=== PATIENT | male | born 1975 | race Caucasian/White ===

== ENCOUNTER → 2017-08-08 | Outpatient (CLI) | payer BC ==
--- NOTE | 2017-08-08 12:33 | RADIOLOGY REPORT (SQ) ---
EXAM DESCRIPTION: LUMBAR SPINE COMPLETE COMPLETED DATE/TIME: 08/08/2017 10:32 am REASON FOR STUDY: LOW BACK PAIN; OTHER SPONDYLOSIS M54.5 LOW BACK PAIN M47.896 OTHER SPONDYLOSIS, LUMBAR REGION COMPARISON: None. NUMBER OF VIEWS: Five views including obliques. TECHNIQUE: AP, lateral, oblique, and sacral radiographic images acquired of the lumbar spine. LIMITATIONS: None. FINDINGS: MINERALIZATION: Normal. SEGMENTATION: Normal. No transitional anatomy. ALIGNMENT: Normal. VERTEBRAE: Maintained height. No fracture or worrisome bone lesion. DISCS: High-grade disc space loss of height with vacuum disc phenomenon at L5-S1. Mild disc space lo ss of height at L4-5. POSTERIOR ELEMENTS: Pedicles and facets are intact. No pars defect or posterior arch defects. Mild bilateral facet arthropathy at L5-S1. HARDWARE: None in the spine. PARASPINAL SOFT TISSUES: Normal. PELVIS: Not in the field of view OTHER: No other significant finding. IMPRESSION: Degenerative disc changes at L5-S1, and L4-5 TECHNICAL DOCUMENTATION: JOB ID: [id number] [employer]- All Rights Reserved Reading location - IP/workstation name: [email or web address]
== END ==
LOC: OD 10:18
PROVIDERS: ATTEND Physician Assistant
DX: M54.5 Low back pain (principal); M47.896 Other spondylosis, lumbar region
CPT/HCPCS: 72110

== ENCOUNTER 2018-06-01 15:20 | Emergency (ER) | payer BC ==
[2018-06-01] MEDS ORDERED: RINGERS SOLUTION,LACTATED 1,000 ML IV ONE (17:05)
[2018-06-01] MEDS ORDERED: MORPHINE SULFATE 10 MG/ML INJ IV ONE (17:06)
[2018-06-01] MEDS ORDERED: ONDANSETRON HCL INJ/PF 4 MG/2 ML SDV IV ONE (17:06)
--- NOTE | 2018-06-01 17:09 | ER Document Report ---
ED Medical Screen (RME) - General Chief Complaint: Abdominal Pain Stated Complaint: ABDOMINAL PAIN Time Seen by Provider: 06/01/18 17:01 Primary Care Provider: XOCHITL BROWN MD [Primary Care Provider] - Follow up as needed Mode of Arrival: Ambulatory Information source: Patient Notes: This is a 43-year-old man with a history of hypertension and diabetes presents to the emergency room with nausea, vomiting, upper abdominal pain, chills, dizziness and weakness. Patient states that the discomfort started earlier today. TRAVEL OUTSIDE OF THE [place] IN LAST 30 DAYS: No - Related Data Allergies/Adverse Reactions: No Known Allergies Allergy (Verified 06/01/18 15:22) Past Medical History - Past Medical History Cardiac Medical History: Reports: Hx Hypertension Pulmonary Medical History: Denies: Hx Tuberculosis Endocrine Medical History: Reports: Hx Diabetes Mellitus Type 2 Past Surgical History: Reports: Hx Cardiac Catheterization, Hx Orthopedic Surgery - plate in neck.. Denies: Hx Pacemaker - Immunizations Hx Diphtheria, Pertussis, Tetanus Vaccination: Yes Physical Exam - Vital signs Vitals: Temp Pulse Resp BP Pulse Ox 97.4 F 73 18 154/74 H 100 06/01/18 15:39 06/01/18 15:39 06/01/18 15:39 06/01/18 15:39 06/01/18 15:39 Course - Vital Signs Vital signs: Temp Pulse Resp BP Pulse Ox 97.4 F 73 18 154/74 H 100 06/01/18 15:39 06/01/18 15:39 06/01/18 15:39 06/01/18 15:39 06/01/18 15:39 Doctor's Discharge - Discharge Referrals: XOCHITL BROWN MD [Primary Care Provider] - Follow up as needed
[2018-06-01 18:21] LABS: HEMATOCRIT 52.2 % (37.9-51.0); HEMOGLOBIN 18.1 g/dL (13.5-17.0); MEAN CORPUSCULAR HEMOGLOBIN 29.5 pg (27.0-33.4); MEAN CORPUSCULAR HGB CONC 34.7 g/dL (32.0-36.0); MEAN CORPUSCULAR VOLUME 85 fl (80-97); PLATELET COUNT 295 10^3/uL (150-450); RED BLOOD COUNT 6.14 10^6/uL (4.35-5.55); RED CELL DISTRIBUTION WIDTH 13.4 % (11.5-14.0); WHITE BLOOD COUNT 20.5 10^3/uL (4.0-10.5)
[2018-06-01 18:31] LABS: APPEARANCE,URINE CLEAR; BILIRUBIN,URINE NEGATIVE (NEGATIVE); COLOR,URINE YELLOW; GLUCOSE, URINE >=500 mg/dL (NEGATIVE); KETONES,URINE 20 mg/dL (NEGATIVE); LEUKOCYTE ESTERASE,URINE NEGATIVE (NEGATIVE); NITRITE,URINE NEGATIVE (NEGATIVE); PROTEIN,URINE NEGATIVE (NEGATIVE); URINE SPECIFIC GRAVITY 1.021; UROBILINOGEN,URINE NEGATIVE mg/dL (<2.0)
[2018-06-01 18:38] LABS: ALANINE AMINOTRANSFERASE 33 U/L (21-72); ALBUMIN 5.3 g/dL (3.5-5.0); ALKALINE PHOSPHATASE 95 U/L (38-126); ANION GAP 13 (5-19); ASPARTATE AMINO TRANSFERASE 35 U/L (17-59); BILIRUBIN,DIRECT 0.4 mg/dL (0.0-0.4); BILIRUBIN,TOTAL 0.9 mg/dL (0.2-1.3); BLOOD UREA NITROGEN 18 mg/dL (7-20); CALCIUM 10.7 mg/dL (8.4-10.2); CARBON DIOXIDE 25 mmol/L (22-30); CHLORIDE 102 mmol/L (98-107); GLUCOSE 146 mg/dL (75-110); LIPASE 95.8 U/L (23-300); POTASSIUM 4.8 mmol/L (3.6-5.0); TOTAL PROTEIN 8.1 g/dL (6.3-8.2)
[2018-06-01 18:40] LABS: ABSOLUTE LYMPHOCYTES# (MANUAL) 1.8 10^3/uL (0.5-4.7); ABSOLUTE MONOCYTES # (MANUAL) 0.2 10^3/uL (0.1-1.4); ABSOLUTE NEUTROPHILS# (MANUAL) 18.5 10^3/uL (1.7-8.2); BAND NEUTROPHILS % (MANUAL) 1 % (3-5); BASOPHILS % (MANUAL) 0 % (0-2); EOSINOPHILS % (MANUAL) 0 % (0-6); LYMPHOCYTES % (MANUAL) 9 % (13-45); MONOCYTES % (MANUAL) 1 % (3-13); SEGMENTED NEUTROPHILS % (MAN) 89 % (42-78); TOTAL CELLS COUNTED 100
[2018-06-01 18:42] LABS: OVALOCYTES SLIGHT; PLATELET COMMENT ADEQUATE; POIKILOCYTOSIS SLIGHT; TOXIC GRANULATION SLIGHT
--- NOTE | 2018-06-01 20:24 | RADIOLOGY REPORT (SQ) ---
EXAM DESCRIPTION: US ABDOMEN LIMITED COMPLETED DATE/TME: 06/01/2018 17:07 CLINICAL HISTORY: 43 years, Male, upper abdominal pain COMPARISON: None. EXAM DESCRIPTION: CLINICAL HISTORY: upper abdominal pain COMPARISON: None. FINDINGS: Sonography was performed of the right upper quadrant. Aorta appears normal. Liver span is 18.1 cm. Flow in the main portal vein is in the expected direction. No sonographic Haynes's sign. There is sludge in the gallbladder lumen. Right kidney measures 13.9 cm in span. The gallbladder is normal in appearance with no evidence of gallstones, wall thickening or pericholecystic fluid. No focal hepatic or pancreatic lesion is seen. The right kidney appears normal. Common duct is normal in caliber. IMPRESSION: Gallbladder sludge with no other evidence of acute cholecystitis. Hepatomegaly.
[2018-06-01] MEDS ORDERED: METOCLOPRAMIDE HCL ORAL SOLN 10 MG/10 ML UDCUP PO ONE (20:36)
[2018-06-01] MEDS ORDERED: FAMOTIDINE 20 MG TABLET PO ONE (20:36)
[2018-06-01] MEDS ORDERED: LIDOCAINE 2% VISCOUS SOLN 20 ML UDCUP PO ONE (20:36)
[2018-06-01] MEDS ORDERED: MAG HYDROX/AL HYDROX/SIMETH SUSP 30 ML UDCUP PO ONE (20:36)
--- NOTE | 2018-06-01 20:37 | ER Document Report ---
ED General - General Chief Complaint: Abdominal Pain Stated Complaint: ABDOMINAL PAIN Time Seen by Provider: 06/01/18 17:01 Primary Care Provider: XOCHITL BROWN MD [NO LOCAL MD] - Follow up in 3-5 days Mode of Arrival: Ambulatory Notes: Patient is a 43-year-old male with past medical history of [id number] type 2 diabetes who presents with complaints of epigastric abdominal pain with associated nausea that started earlier today while at work. Patient reports that prior to the onset of his symptoms he had eaten mandarin oranges, as well as a bag of "fiery Cheetos and fritos". States the pain started as a mild, aching, burning sensation in his epigastrium that dramatically worsened over the course of the next several hours. He did go home because the pain was so severe in his mother at the bedside states that he was rolling around the bed secondary to pain. Patient states that after receiving IV pain medications here in the emergency room and his pain has eased up considerably. Denies any history of similar pains in the past. Has not seen his primary care physician regarding today's concerns. TRAVEL OUTSIDE OF THE [place] IN LAST 30 DAYS: No - Related Data Allergies/Adverse Reactions: No Known Allergies Allergy (Verified 06/01/18 15:22) Past Medical History - General Information source: Patient - Social History Smoking Status: Current Every Day Smoker Chew tobacco use (# tins/day): No Frequency of alcohol use: None Drug Abuse: None Lives with: Parents Family History: Reviewed & Not Pertinent Patient has suicidal ideation: No Patient has homicidal ideation: No - Past Medical History Cardiac Medical History: Reports: Hx Heart Attack, Hx Hypercholesterolemia, Hx Hypertension Pulmonary Medical History: Denies: Hx Tuberculosis Endocrine Medical History: Reports: Hx Diabetes Mellitus Type 2 Renal/ Medical History: Denies: Hx Peritoneal Dialysis Past Surgical History: Reports: Hx Cardiac Catheterization, Hx Orthopedic Surgery - plate in neck.. Denies: Hx Pacemaker - Immunizations Hx Diphtheria, Pertussis, Tetanus Vaccination: Yes Review of Systems - Review of Systems Notes: Constitutional: Negative for fever. HENT: Negative for sore throat. Eyes: Negative for visual changes. Cardiovascular: Negative for chest pain. Respiratory: Negative for shortness of breath. Gastrointestinal: Positive for upper abdominal pain, nausea Genitourinary: Negative for dysuria. Musculoskeletal: Negative for back pain. Skin: Negative for rash. Neurological: Negative for headaches, weakness or numbness. 10 point ROS negative except as marked above and in HPI. Physical Exam - Vital signs Vitals: Temp Pulse Resp BP Pulse Ox 97.4 F 73 18 154/74 H 100 06/01/18 15:39 06/01/18 15:39 06/01/18 15:39 06/01/18 15:39 06/01/18 15:39 Interpretation: Hypertensive Notes: PHYSICAL EXAMINATION: GENERAL: Well-appearing, well-nourished and in no acute distress. HEAD: Atraumatic, normocephalic. EYES: Pupils equal round and reactive to light, extraocular movements intact, sclera anicteric, conjunctiva are normal. ENT: nares patent, oropharynx clear without exudates. Mild dry mucous membranes. NECK: Normal range of motion, supple without lymphadenopathy LUNGS: Breath sounds clear to auscultation bilaterally and equal. No wheezes rales or rhonchi. HEART: Regular rate and rhythm without murmurs ABDOMEN: Soft, mild focal tenderness to the epigastrium but no other localized areas of tenderness, normoactive bowel sounds. No guarding, no rebound. No masses appreciated. EXTREMITIES: Normal range of motion, no pitting or edema. No cyanosis. NEUROLOGICAL: No focal neurological deficits. Moves all extremities spontaneously and on command. PSYCH: Normal mood, normal affect. SKIN: Warm, Dry, normal turgor, no rashes or lesions noted. Course - Re-evaluation Re-evalutation: 06/01/18 20:35 Patient presents with epigastric abdominal pain with associated reflux symptoms most consistent with likely gastritis. Patient has no focal abdominal tenderness on examination. Right upper quadrant ultrasound does not demonstrate any evidence of acute cholecystitis or cholelithiasis. Lipase is normal. No LFT changes. Based on history and exam, I do not suspect ACS, pulmonary embolus, SBO, mesenteric ischemia, acute pancreatitis, biliary pathology, or an abdominal aortic dissection. Given marked leukocytosis, CT undertaken which is likewise noted to be normal. Patient has had improvement of symptoms here with a GI cocktail. At this time will discharge with return precautions and follow-up recommendations. Verbal discharge instructions given a the bedside and opportunity for questions given. Medication warnings reviewed. Patient is in agreement with this plan and has verbalized understanding of return precautions and the need for primary care follow-up in the next 24-72 hours. 06/02/18 01:15 - Vital Signs Vital signs: Temp Pulse Resp BP Pulse Ox 98.1 F 82 18 115/58 L 95 06/01/18 22:00 06/01/18 22:00 06/01/18 22:00 06/01/18 22:00 06/01/18 22:00 - Laboratory Result Diagrams: 06/01/18 17:57 06/01/18 17:57 Laboratory results interpreted by me: 06/01/18 06/01/18 06/01/18 17:57 17:57 17:57 WBC 20.5 H RBC 6.14 H Hgb 18.1 H Hct 52.2 H Seg Neuts % (Manual) 89 H Band Neutrophils % 1 L Lymphocytes % (Manual) 9 L Monocytes % (Manual) 1 L Abs Neuts (Manual) 18.5 H Glucose 146 H Calcium 10.7 H Albumin 5.3 H Urine Glucose (UA) >=500 H Urine Ketones 20 H - Diagnostic Test Radiology reviewed: Reports reviewed Discharge - Discharge Clinical Impression: Epigastric abdominal pain, Gastritis and duodenitis Nausea and vomiting Qualifiers: Vomiting type: unspecified Vomiting Intractability: non-intractable Qualified Code(s): R11.2 - Nausea with vomiting, unspecified Condition: Good Disposition: HOME, SELF-CARE Additional Instructions: Your symptoms appear to be most consistent with stomach or upper intestinal irritation. Please begin taking famotidine 40 mg in the morning and 40 mg at night. Take Carafate prior to meals. You may also take medicine such as Pepto- Bismol or Tums to assist with your pain. Please return to emergency department immediately if you have worsening of your pain, shortness of breath, vomiting, become unable to exert yourself due to pain or difficulty breathing, you pass out, or have any pain that radiates into your arms, jaw, or back. Please also return if you have any additional symptoms that are concerning to you. As we have discussed, the most important thing is lifestyle changes. You need to avoid smoking, sodas, tea, coffee, alcohol, spicy foods, and acidic foods such as citrus fruits, tomato based products, berries, and most fruit juices. Prescriptions: Famotidine 40 mg PO BID #60 tablet Sucralfate [Carafate 1 gm Tablet] 1 gm PO ACHS #120 tablet Forms: Return to Work Referrals: XOCHITL BROWN MD [NO LOCAL MD] - Follow up in 3-5 days
--- NOTE | 2018-06-01 21:15 | RADIOLOGY REPORT (SQ) ---
EXAM DESCRIPTION: CT ABDOMEN PELVIS WITH IV CONTRAST COMPLETED DATE/TME: 06/01/2018 19:43 CLINICAL HISTORY: 43 years, Male, upper ab pain, leukocytosis COMPARISON: EXAM DESCRIPTION: CLINICAL HISTORY: upper ab pain, leukocytosis COMPARISON: TECHNIQUE: Contiguous axial images of the abdomen and pelvis were obtained after the administration of intravenous contrast followed by reconstruction images.This exam was performed according to our departmental dose-optimization program, which includes automated exposure control, adjustment of the mA and/or kV according to patient size and/or use of iterative reconstruction technique. FINDINGS: The liver, spleen, pancreas and kidneys are within normal limits. There is no hydronephrosis. The gallbladder is unremarkable. Adrenal glands are within normal limits. Aorta is normal in caliber and tapering. No significant free fluid. No free air. No bowel obstruction. There is no stranding of the mesenteric fat. The appendix appears normal. No evidence of periappendiceal inflammation. IMPRESSION: No acute intra-abdominal abnormality TECHNIQUE: Images stored on PACS. All CT scanners at this facility use dose modulation, iterative reconstruction, and/or weight based dosing when appropriate to reduce radiation dose to as low as reasonably achievable (ALARA). [facility]: Dose Right [facility]: CareDose [facility]: Dose Right [facility]: Teradose 4D [facility]: Ens[place] LIMITATIONS: None. FINDINGS: IMPRESSION: TECHNICAL DOCUMENTATION: Quality ID # [id number]: Final reports with documentation of one or more dose reduction techniques (e.g., Automated exposure control, adjustment of the mA and/or kV according to patient size, use of iterative reconstruction technique) copyright 2011 [email or web address]- All Rights Reserved
[2018-06-01 23:24] VITALS: BP 115/58
== END 2018-06-01 22:00 | disposition home or self-care (01) ==
LOC: ER 15:20
DX: R10.13 Epigastric pain (principal); K29.60 Other gastritis without bleeding; R11.2 Nausea with vomiting, unspecified; E11.9 Type 2 diabetes mellitus without complications; F17.200 Nicotine dependence, unspecified, uncomplicated; E78.00 Pure hypercholesterolemia, unspecified; I25.2 Old myocardial infarction
CPT/HCPCS: 99284; 96361; 96374; 96375; 36415; 83690; 85025; 80053; 81001; 76705; 74177; J3490; J2270; J2405; J7120

== ENCOUNTER 2018-10-09 23:06 | Emergency (ER) | payer BC ==
--- NOTE | 2018-10-10 01:55 | ER Document Report ---
ED Medical Screen (RME) - General Chief Complaint: Abdominal Pain Stated Complaint: ABDOMINAL PAIN Time Seen by Provider: 10/10/18 01:51 Mode of Arrival: Ambulatory Information source: Patient Notes: 43-year-old male presents to ED for complaint of epigastric abdominal pain. He states he has had this pain in the past about 2 months ago and he was seen here and was given medications for it today it started about 3 PM. He states he has vomited multiple times. He does have a history of ventral hernia high blood pressure diabetes and a plate in his neck. He does smoke a pack a day and a little bit of pot does not drink any alcohol. Patient is alert oriented respirations regular and unlabored speaking in full sentences walks with even any gait. We will get some blood work in the upper abdominal ultrasound to evaluate this pain. I have greeted and performed a rapid initial assessment of this patient. A comprehensive ED assessment and evaluation of the patient, analysis of test results and completion of medical decision making process will be conducted by an additional ED providers. Dictation of this chart was performed using voice recognition software; therefore, there may be some unintended grammatical errors. TRAVEL OUTSIDE OF THE [place] IN LAST 30 DAYS: No - Related Data Allergies/Adverse Reactions: No Known Allergies Allergy (Verified 06/01/18 15:22) Past Medical History - Past Medical History Cardiac Medical History: Reports: Hx Heart Attack, Hx Hypercholesterolemia, Hx Hypertension Pulmonary Medical History: Denies: Hx Tuberculosis Endocrine Medical History: Reports: Hx Diabetes Mellitus Type 2 Renal/ Medical History: Denies: Hx Peritoneal Dialysis Past Surgical History: Reports: Hx Cardiac Catheterization, Hx Orthopedic Surgery - plate in neck.. Denies: Hx Pacemaker - Immunizations Hx Diphtheria, Pertussis, Tetanus Vaccination: Yes Physical Exam - Vital signs Vitals: Temp Pulse BP Pulse Ox 97.4 F 65 125/63 96 10/09/18 23:43 10/09/18 23:43 10/09/18 23:43 10/09/18 23:43 Course - Vital Signs Vital signs: Temp Pulse Resp BP Pulse Ox 97.4 F 65 125/63 96 10/09/18 23:43 10/09/18 23:43 10/09/18 23:43 10/09/18 23:43
[2018-10-10 02:51] LABS: ABSOLUTE BASOPHILS # (AUTO) 0.1 10^3/uL (0.0-0.2); ABSOLUTE EOSINOPHILS # (AUTO) 0.2 10^3/uL (0.0-0.6); ABSOLUTE LYMPHOCYTES (AUTO) 2.9 10^3/uL (0.5-4.7); ABSOLUTE MONOCYTES (AUTO) 0.7 10^3/uL (0.1-1.4); ABSOLUTE NEUT (AUTO) 10.4 10^3/uL (1.7-8.2); BASOPHILS % (AUTO) 0.4 % (0-2); EOSINOPHILS % (AUTO) 1.6 % (0-6); HEMATOCRIT 47.8 % (37.9-51.0); HEMOGLOBIN 16.2 g/dL (13.5-17.0); LYMPHOCYTES % (AUTO) 20.4 % (13-45); MEAN CORPUSCULAR HGB CONC 33.9 g/dL (32.0-36.0); MEAN CORPUSCULAR VOLUME 86 fl (80-97); MONOCYTES % (AUTO) 4.7 % (3-13); PLATELET COUNT 283 10^3/uL (150-450); RED BLOOD COUNT 5.58 10^6/uL (4.35-5.55); RED CELL DISTRIBUTION WIDTH 13.5 % (11.5-14.0); SEGMENTED NEUTROPHILS % (AUTO) 72.9 % (42-78); TOTAL CELLS COUNTED % (AUTO) 100 %; WHITE BLOOD COUNT 14.2 10^3/uL (4.0-10.5)
--- NOTE | 2018-10-10 03:00 | RADIOLOGY REPORT (SQ) ---
EXAM DESCRIPTION: US ABDOMEN LIMITED COMPLETED DATE/TME: 10/10/2018 01:51 CLINICAL HISTORY: 43 years, Male, Epigastric abdominal pain with nausea and vomiting COMPARISON: 06/01/2018 TECHNIQUE: Grayscale and color images of the abdomen were obtained. LIMITATIONS: None. FINDINGS: The visualized portions of the pancreas and abdominal aorta appear unremarkable. The liver demonstrates increased echotexture and measures 21.5 cm in size. The main portal vein demonstrates normal hepatopedal flow. There is no evidence of cholelithiasis, wall thickening, or pericholecystic fluid. No sonographic Haynes sign was elicited. The common bile duct measures up to 5 mm in diameter. The right kidney measures 13.8 x 5.5 x 5.3 cm. No hydronephrosis. IMPRESSION: Fatty liver. copyright 2010 [employer]- All Rights Reserved
[2018-10-10 03:04] LABS: ALANINE AMINOTRANSFERASE 39 U/L (21-72); ALBUMIN 4.6 g/dL (3.5-5.0); ALKALINE PHOSPHATASE 72 U/L (38-126); ANION GAP 10 (5-19); ASPARTATE AMINO TRANSFERASE 31 U/L (17-59); BILIRUBIN,DIRECT 0.3 mg/dL (0.0-0.4); BILIRUBIN,TOTAL 0.8 mg/dL (0.2-1.3); BLOOD UREA NITROGEN 13 mg/dL (7-20); CARBON DIOXIDE 27 mmol/L (22-30); CHLORIDE 103 mmol/L (98-107); GLUCOSE 133 mg/dL (75-110); LIPASE 79.9 U/L (23-300); POTASSIUM 4.7 mmol/L (3.6-5.0); SODIUM 140.3 mmol/L (137-145); TOTAL PROTEIN 7.4 g/dL (6.3-8.2)
--- NOTE | 2018-10-10 06:05 | ER Document Report ---
ED General - General Chief Complaint: Abdominal Pain Stated Complaint: ABDOMINAL PAIN Time Seen by Provider: 10/10/18 01:51 Primary Care Provider: LEANNE BARRY FNP-C [Primary Care Provider] - Follow up as needed Mode of Arrival: Ambulatory Notes: Patient is a 43-year-old male that presents to the emergency department for chief complaint of epigastric abdominal pain. Patient reports that his pain started yesterday around 3 PM, said associated nausea and episode of vomiting. He describes the pain as a constant aching sensation, is not sure if it is any better or worse with food because he does not want to eat much. He denies any fevers, chills, night sweats, chest pain, shortness of breath or difficulty breathing. Denies any recent fevers, chills, night sweats, dysuria or millie turia. He states his had pain in his abdomen before but it was lower, and this is different. He states he does take Mobic on a daily basis, and does smoke cigarettes. Denies any heavy alcohol use. Past Medical History: Diabetes mellitus, hypertension Past Surgical History: Hernia repair Social History: Admits to smoking cigarettes, denies daily alcohol use, denies illicit drug use. Family History: Reviewed and noncontributory for presenting illness Allergies: Reviewed, see documented allergy list. REVIEW OF SYSTEMS: Other than noted above, the 12 point review of systems was reviewed with the patient and were negative, all pertinent findings are included in the HPI. PHYSICAL EXAMINATION: Vital signs reviewed, nursing noted reviewed. GENERAL: Well-appearing, well-nourished and in no acute distress. HEAD: Atraumatic, normocephalic. EYES: Eyes appear normal, extraocular movements intact, sclera anicteric, conjunctiva are normal. ENT: nares patent, oropharynx clear without exudates. Moist mucous membranes. NECK: Normal range of motion, supple without lymphadenopathy LUNGS: Breath sounds clear to auscultation bilaterally and equal. No wheezes rales or rhonchi. HEART: Regular rate and rhythm without murmurs ABDOMEN: Soft, mild epigastric abdominal tenderness palpation, presence of mild diastases recti, normoactive bowel sounds. No rebound, guarding, or rigidity. No masses appreciated. EXTREMITIES: Nontender, good range of motion, no pitting or edema. NEUROLOGICAL: No focal neurological deficits. Moves all extremities spontaneously Motor and sensory grossly intact on exam. PSYCH: Normal mood, normal affect. SKIN: Warm, Dry, normal turgor, no rashes or lesions noted on exposed skin TRAVEL OUTSIDE OF THE [place] IN LAST 30 DAYS: No - Related Data Allergies/Adverse Reactions: No Known Allergies Allergy (Verified 06/01/18 15:22) Past Medical History - General Information source: Patient - Social History Smoking Status: Current Every Day Smoker Chew tobacco use (# tins/day): No Frequency of alcohol use: Rare Drug Abuse: Marijuana Family History: Reviewed & Not Pertinent Patient has suicidal ideation: No Patient has homicidal ideation: No - Past Medical History Cardiac Medical History: Reports: Hx Heart Attack, Hx Hypercholesterolemia, Hx Hypertension Pulmonary Medical History: Denies: Hx Tuberculosis Endocrine Medical History: Reports: Hx Diabetes Mellitus Type 2 Renal/ Medical History: Denies: Hx Peritoneal Dialysis Past Surgical History: Reports: Hx Cardiac Catheterization, Hx Orthopedic Surgery - plate in neck.. Denies: Hx Pacemaker - Immunizations Hx Diphtheria, Pertussis, Tetanus Vaccination: Yes Physical Exam - Vital signs Vitals: Temp Pulse BP Pulse Ox 97.4 F 65 125/63 96 10/09/18 23:43 10/09/18 23:43 10/09/18 23:43 10/09/18 23:43 Course - Re-evaluation Re-evalutation: Patient seen and examined vital signs reviewed. Laboratory data and/or imaging were ordered as appropriate for the patient's presenting symptoms and complaint, with consideration of any critical or life threatening conditions that may be associated with their obtained history and exam as noted above. Patient was treated with GI cocktail Results were reviewed when available and demonstrated leukocytosis, likely secondary to vomiting, and acute stress reactant, no evidence of acute infection on his exam, or laboratory findings otherwise, lipase is negative. The patient was re-evaluated and was stable and improved Evaluation was most consistent with epigastric abdominal pain, likely gastritis versus duodenitis, advise discontinuing Mobic if possible, and prescribing omeprazole and Carafate and have him follow-up with gastroenterology. Results were discussed with the patient at this point, after careful consideration I feel that that patient can be discharged from the emergency department, the patient was educated treatments and reasons to return to the emergency department based on their presumed diagnosis as noted above, they were advised to followup with a primary care physician in 2-3 days. Patient was agreeable to plan of care. *Note is created using voice recognition software and may contain spelling, syntax or grammatical errors. Laboratory 10/10/18 10/10/18 02:25 02:25 WBC 14.2 H RBC 5.58 H Hgb 16.2 Hct 47.8 MCV 86 MCH 29.0 MCHC 33.9 RDW 13.5 Plt Count 283 Seg Neutrophils % 72.9 Lymphocytes % 20.4 Monocytes % 4.7 Eosinophils % 1.6 Basophils % 0.4 Absolute Neutrophils 10.4 H Absolute Lymphocytes 2.9 Absolute Monocytes 0.7 Absolute Eosinophils 0.2 Absolute Basophils 0.1 Sodium 140.3 Potassium 4.7 Chloride 103 Carbon Dioxide 27 Anion Gap 10 BUN 13 Creatinine 0.65 Est GFR ( Amer) > 60 Est GFR (Non-Af Amer) > 60 Glucose 133 H Calcium 10.0 Total Bilirubin 0.8 Direct Bilirubin 0.3 Neonat Total Bilirubin Not Reportable Neonat Direct Bilirubin Not Reportable Neonat Indirect Bili Not Reportable AST 31 ALT 39 Alkaline Phosphatase 72 Total Protein 7.4 Albumin 4.6 Lipase 79.9 Abdomen Ultrasound 10/10/18 01:51 IMPRESSION: Fatty liver. copyright 2010 [employer]- All Rights Reserved - Vital Signs Vital signs: Temp Pulse Resp BP Pulse Ox 98.7 F 63 20 130/45 H 94 10/10/18 02:36 10/10/18 02:36 10/10/18 02:36 10/10/18 02:36 10/10/18 02:36 - Laboratory Result Diagrams: 10/10/18 02:25 10/10/18 02:25 Laboratory results interpreted by me: 10/10/18 10/10/18 02:25 02:25 WBC 14.2 H RBC 5.58 H Absolute Neutrophils 10.4 H Glucose 133 H Discharge - Discharge Clinical Impression: Epigastric abdominal pain Condition: Stable Disposition: HOME, SELF-CARE Instructions: Abdominal Pain ([facility]) Additional Instructions: Please take the medications as prescribed, and follow-up with gastroenterology, if you are concerned about the hernia that she developed that we discussed, you can follow-up with surgery as well to have this addressed. If possible I recommend that you discontinue taking the meloxicam that you have been previously prescribed. Prescriptions: Omeprazole 40 mg PO DAILY #30 capsule.dr Sucralfate [Carafate 1 gm Tablet] 1 gm PO ACHS #120 tablet Referrals: LEANNE BARRY, [employer] MANAGER-C [Primary Care Provider] - Follow up as needed CARO HARTMANN MD [ACTIVE STAFF] - Follow up as needed KATHY PATTEN MD [ACTIVE STAFF] - Follow up as needed
[2018-10-10] MEDS ORDERED: METOCLOPRAMIDE HCL ORAL SOLN 10 MG/10 ML UDCUP PO ONE (06:19)
[2018-10-10] MEDS ORDERED: LIDOCAINE 2% VISCOUS SOLN 20 ML UDCUP PO ONE (06:19)
[2018-10-10] MEDS ORDERED: MAG HYDROX/AL HYDROX/SIMETH SUSP 30 ML UDCUP PO ONE (06:19)
[2018-10-10 07:34] VITALS: BP 132/70
== END 2018-10-10 07:35 | disposition home or self-care (01) ==
LOC: ER 23:06
DX: R10.13 Epigastric pain (principal); R11.2 Nausea with vomiting, unspecified; K76.0 Fatty (change of) liver, not elsewhere classified; D72.829 Elevated white blood cell count, unspecified; E11.9 Type 2 diabetes mellitus without complications; I10 Essential (primary) hypertension; F12.10 Cannabis abuse, uncomplicated; F17.210 Nicotine dependence, cigarettes, uncomplicated; Z79.1 Long term (current) use of non-steroidal anti-inflammatories (NSAID)
CPT/HCPCS: 99284; 36415; 83690; 85025; 80053; 76705; J3490